=== PATIENT | female | born 1945 | race Caucasian/White ===

== ENCOUNTER 2023-11-25 10:58 | Outpatient (CLI) | payer MEDICARE, BC, SELFPAY | END 2023-11-25 10:59 | disposition home or self-care (01) | LOC: AMB 12-01 21:24 | PROVIDERS: Visit Provider Student in an Organized Health Care Education/Training Program | DX: S09.90XS Unspecified injury of head, sequela (principal); S29.9XXS Unspecified injury of thorax, sequela | CPT/HCPCS: A0425; A0428 ==